=== PATIENT | male | born 1955 | race Caucasian/White ===

== ENCOUNTER → 2017-07-15 | Outpatient (CLI) | payer BC ==
--- NOTE | 2017-07-15 17:22 | RADIOLOGY REPORT (SQ) ---
EXAM DESCRIPTION: CHEST PA/LATERAL COMPLETED DATE/TIME: 07/15/2017 5:02 pm REASON FOR STUDY: PRE OP Z01.818 ENCOUNTER FOR OTHER PREPROCEDURAL EXAMINATION COMPARISON: None. NUMBER OF VIEWS: Two view. TECHNIQUE: Frontal and lateral radiographic views of the chest acquired. LIMITATIONS: None. FINDINGS: LUNGS AND PLEURA: Minimal linear opacities left lung base compatible with subsegmental ate lectasis/ scarring. No consolidation, masses or pneumothorax. No pleural effusion. MEDIASTINUM AND HILAR STRUCTURES: No masses. No contour abnormalities. HEART AND VASCULAR STRUCTURES: Heart enlarged without failure. Aorta normal for age. BONES: No acute findings. HARDWARE: None in the chest. OTHER: No other significant finding. IMPRESSION: CARDIAC ENLARGEMENT WITHOUT FAILURE. TECHNICAL DOCUMENTATION: JOB ID: [id number] [employer]- All Rights Reserved
--- NOTE | 2017-07-15 18:16 | EKG REPORT ---
SEVERITY:- ABNORMAL ECG - SINUS RHYTHM INCOMPLETE RIGHT BUNDLE BRANCH BLOCK : Confirmed by: Luis Albert MD 15-Jul-2017 18:15:51
[2017-07-15 18:32] LABS: ABSOLUTE EOSINOPHILS # (AUTO) 0.1 10^3/uL (0.0-0.6); ABSOLUTE LYMPHOCYTES (AUTO) 1.5 10^3/uL (0.5-4.7); ABSOLUTE MONOCYTES (AUTO) 0.4 10^3/uL (0.1-1.4); ABSOLUTE NEUT (AUTO) 3.6 10^3/uL (1.7-8.2); BASOPHILS % (AUTO) 0.6 % (0-2); EOSINOPHILS % (AUTO) 1.2 % (0-6); HEMATOCRIT 42.7 % (37.9-51.0); HEMOGLOBIN 14.5 g/dL (13.5-17.0); HGB HCT DIFFERENCE 0.8; LYMPHOCYTES % (AUTO) 26.3 % (13-45); MEAN CORPUSCULAR HEMOGLOBIN 29.2 pg (27.0-33.4); MEAN CORPUSCULAR HGB CONC 33.9 g/dL (32.0-36.0); MEAN CORPUSCULAR VOLUME 86 fl (80-97); MONOCYTES % (AUTO) 6.5 % (3-13); RED BLOOD COUNT 4.96 10^6/uL (4.35-5.55); RED CELL DISTRIBUTION WIDTH 13.5 % (11.5-14.0); SEGMENTED NEUTROPHILS % (AUTO) 65.4 % (42-78); WHITE BLOOD COUNT 5.5 10^3/uL (4.0-10.5)
[2017-07-15 18:52] LABS: ANION GAP 14 (5-19); BLOOD UREA NITROGEN 23 mg/dL (7-20); CALCIUM 10.4 mg/dL (8.4-10.2); CARBON DIOXIDE 25 mmol/L (22-30); CHLORIDE 103 mmol/L (98-107); CREATININE RESULT 0.75 mg/dL (0.52-1.25); GLUCOSE 108 mg/dL (75-110); POTASSIUM 4.4 mmol/L (3.6-5.0); SODIUM 142.2 mmol/L (137-145)
[2017-07-15 18:58] LABS: APPEARANCE,URINE CLEAR; BILIRUBIN,URINE NEGATIVE (NEGATIVE); GLUCOSE, URINE NEGATIVE (NEGATIVE); KETONES,URINE NEGATIVE (NEGATIVE); LEUKOCYTE ESTERASE,URINE NEGATIVE (NEGATIVE); NITRITE,URINE NEGATIVE (NEGATIVE); PROTEIN,URINE NEGATIVE (NEGATIVE); URINE SPECIFIC GRAVITY 1.021; UROBILINOGEN,URINE NEGATIVE mg/dL (<2.0)
== END ==
LOC: OD 15:57
PROVIDERS: ATTEND Orthopaedic Surgery
DX: Z01.818 Encounter for other preprocedural examination (principal)
CPT/HCPCS: 36415; 71020; 80048; 81001; 85025; 93005; 93010